=== PATIENT | female | born 1945 | race Caucasian/White ===

== ENCOUNTER 2019-06-30 12:38 | Inpatient (IN) | payer MEDICARE, BC ==
[~2019-06-30] VITALS: Ht 160 cm; Wt 70.3 kg
[2019-06-30] VITALS (20 sets, daily range): BP systolic 101–165; BP diastolic 37–92
[2019-06-30] MEDS ORDERED: OMEP20TA20 PO (12:58)
[2019-06-30] MEDS ORDERED: CHOL200074 PO (12:58)
[2019-06-30] MEDS ORDERED: FENTANYL CITRATE 100 MCG/2 ML AMPUL IV ONE ×2 (13:00→15:15)
[2019-06-30] MEDS ORDERED: ASPIRIN 325 MG TABLET PO ONE (13:00)
[2019-06-30] MEDS ORDERED: NITROGLYCERIN 0.4 MG/TAB BOTTLE SL ONE ×2 (13:00→13:03)
[2019-06-30] MEDS ORDERED: ASPIRIN 325 MG TABLET ONE (13:02)
[2019-06-30] MEDS ORDERED: FENTANYL CITRATE 100 MCG/2 ML AMPUL ONE ×2 (13:02→15:38)
[2019-06-30] MEDS ORDERED: IV NORMAL SALINE 250 ML IV ONE (13:07)
[2019-06-30] MEDS ORDERED: SWABABLE VALVE TRANSFER SET EA MC ONE (13:07)
[2019-06-30] MEDS ORDERED: IOHEXOL 350 100 ML INFUS..BTL ONE (13:07)
[2019-06-30] MEDS ORDERED: IV NORMAL SALINE 500 ML IV ONE (13:30)
[2019-06-30] MEDS ORDERED: KETAMINE HCL 500 MG/10 ML INJ ONE (13:30)
[2019-06-30] MEDS ORDERED: KETAMINE HCL 500 MG/10 ML INJ IV ONE (13:30)
[2019-06-30] MEDS ORDERED: ONDANSETRON 4 MG/2 ML VIAL ONE (14:06)
[2019-06-30] MEDS ORDERED: MORPHINE SULFATE 2 MG/1 ML DISP.SYRIN ONE ×2 (14:06→14:35)
[2019-06-30] MEDS ORDERED: ONDANSETRON 4 MG/2 ML VIAL IV ONE (14:15)
[2019-06-30] MEDS ORDERED: MORPHINE SULFATE 2 MG/1 ML DISP.SYRIN IV ONE ×2 (14:15→16:30)
[2019-06-30 14:17] LABS: BASOPHILS # (AUTO) 0.1 K/uL (0.0-8.0); BASOPHILS % (AUTO) 1.2 % (0.0-2.0); EOSINOPHILS # (AUTO) 0.1 K/uL (0.0-0.7); EOSINOPHILS % (AUTO) 2.4 % (0.0-7.0); HEMATOCRIT 38.9 % (31.2-41.9); HEMOGLOBIN 12.7 g/dL (10.9-14.3); LYMPHOCYTES # (AUTO) 1.4 K/uL (20.0-40.0); LYMPHOCYTES % (AUTO) 29.6 % (20.5-51.5); MEAN CORPUSCULAR HEMOGLOBIN 30.3 uug (24.7-32.8); MEAN CORPUSCULAR HGB CONC 33 g/dL (32.3-35.6); MONOCYTES # (AUTO) 0.4 K/uL (2.0-10.0); MONOCYTES % (AUTO) 8.3 % (0.0-11.0); NEUTROPHILS # (AUTO) 2.9 K/uL (1.8-8.9); NEUTROPHILS % (AUTO) 58.5 % (38.5-71.5); PLATELET COUNT (AUTO) 172 K/uL (179-408); RED BLOOD CELL COUNT(AUTO) 4.18 MIL/uL (3.63-4.92); WHITE BLOOD COUNT (AUTO) 4.9 K/uL (3.8-11.8)
[2019-06-30 14:18] LABS: CREATININE 0.6 mg/dL (0.6-1.3); POTASSIUM 3.4 mmol/L (3.5-5.1)
[2019-06-30 14:31] LABS: BILIRUBIN,DIRECT 0.1 mg/dL (0.0-0.2); BILIRUBIN,TOTAL 0.3 mg/dL (0.2-1.0); TOTAL PROTEIN, SERUM 6.6 g/dL (6.4-8.2)
[2019-06-30] MEDS ORDERED: NITROGLYCERIN IV 250 ML ONE (15:27)
[2019-06-30] MEDS ORDERED: FAMOTIDINE. 20 MG/2 ML VIAL IV ONE ×2 (15:30→15:34)
[2019-06-30] MEDS ORDERED: NITROGLYCERIN IV 250 ML IV PRN ×2 (15:30→18:30)
[2019-06-30] MEDS ORDERED: MAGNESIUM HYDROXIDE 30 ML LIQUID UDC PO PRN (15:45)
[2019-06-30] MEDS ORDERED: ACETAMINOPHEN 325 MG TABLET PO PRN (15:45)
[2019-06-30] MEDS ORDERED: HYDROCODONE/APAP 5-325MG TABLET PO PRN (15:45)
[2019-06-30] MEDS ORDERED: NITROGLYCERIN 0.4 MG/TAB BOTTLE SL PRN (15:45)
[2019-06-30] MEDS: FAMOTIDINE. 20 MG/2 ML VIAL IV ONE ×2 (16:32→17:15)
[2019-06-30] MEDS ORDERED: HEPARIN/D5W DRIP 500 ML IV PRN ×2 (16:45→17:45)
[2019-06-30] MEDS ORDERED: HEPARIN SODIUM,PORCINE 5,000 UNITS/ML VIAL IV ONE (16:45)
[2019-06-30] MEDS ORDERED: ENOXAPARIN SODIUM 80 MG/0.8 ML DISP.SYRIN SQ ONE (16:52)
[2019-06-30] MEDS ORDERED: HEPARIN SODIUM,PORCINE 5,000 UNITS/ML VIAL SQ PRN (18:00)
[2019-06-30] MEDS: MORPHINE SULFATE 2 MG/1 ML DISP.SYRIN IV PRN ×2 (18:11→21:34)
[2019-06-30] MEDS: ONDANSETRON 4 MG/2 ML VIAL IV PRN (18:11)
[2019-06-30] MEDS: IV NS 1000 ML 1,000 ML IV PRN (18:17)
[2019-06-30] MEDS ORDERED: HEPARIN SODIUM,PORCINE 5,000 UNITS/ML VIAL IV PRN (18:46)
[2019-07-01] VITALS (29 sets, daily range): BP systolic 92–147; BP diastolic 43–85
[2019-07-01] MEDS: ONDANSETRON 4 MG/2 ML VIAL IV PRN (00:42)
[2019-07-01] MEDS: IV NS 1000 ML 1,000 ML IV PRN (06:10)
[2019-07-01 06:26] LABS: BASOPHILS # (AUTO) 0.1 K/uL (0.0-8.0); BASOPHILS % (AUTO) 0.7 % (0.0-2.0); EOSINOPHILS # (AUTO) 0.1 K/uL (0.0-0.7); EOSINOPHILS % (AUTO) 0.7 % (0.0-7.0); HEMATOCRIT 34.8 % (31.2-41.9); HEMOGLOBIN 11.4 g/dL (10.9-14.3); LYMPHOCYTES # (AUTO) 1.4 K/uL (20.0-40.0); LYMPHOCYTES % (AUTO) 19.3 % (20.5-51.5); MEAN CORPUSCULAR HEMOGLOBIN 30.7 uug (24.7-32.8); MEAN CORPUSCULAR HGB CONC 33 g/dL (32.3-35.6); MEAN CORPUSCULAR VOLUME 93.7 fL (75.5-95.3); MONOCYTES # (AUTO) 0.6 K/uL (2.0-10.0); MONOCYTES % (AUTO) 8.4 % (0.0-11.0); NEUTROPHILS # (AUTO) 5.2 K/uL (1.8-8.9); NEUTROPHILS % (AUTO) 70.9 % (38.5-71.5); PLATELET COUNT (AUTO) 211 K/uL (179-408); RED BLOOD CELL COUNT(AUTO) 3.72 MIL/uL (3.63-4.92); WHITE BLOOD COUNT (AUTO) 7.3 K/uL (3.8-11.8)
[2019-07-01 06:55] LABS: CARBON DIOXIDE 28 mmol/L (21-32); CHLORIDE 108 mmol/L (98-107); CHOLESTEROL 189 mg/dL (<200); CREATININE 0.6 mg/dL (0.6-1.3); GLUCOSE 100 mg/dL (74-106); HDL CHOLESTEROL 69 mg/dL (40-60); MAGNESIUM 1.8 mg/dL (1.8-2.4); PHOSPHOROUS 2.6 mg/dL (2.5-4.9); POTASSIUM 3.6 mmol/L (3.5-5.1); TRIGLYCERIDES 54 MG/DL (30-150); UREA NITROGEN, BLOOD 10 mg/dL (7-18)
[2019-07-01 06:57] LABS: THYROID STIMULATING HORMONE 0.497 mIU/mL (0.358-3.740)
[2019-07-01] MEDS ORDERED: PANTOPRAZOLE SODIUM 40 MG TABLET.DR PO SCH (07:00)
[2019-07-01] MEDS ORDERED: NITROGLYCERIN IV 250 ML IV PRN (10:15)
== END 2019-07-01 19:45 | disposition home or self-care (01) | DRG 392 ==
LOC: ER 12:38 → CCU 16:51
DX: K44.9 Diaphragmatic hernia without obstruction or gangrene (principal); K50.90 Crohn's disease, unspecified, without complications; J98.11 Atelectasis; K21.9 Gastro-esophageal reflux disease without esophagitis; R07.89 Other chest pain; Z86.718 Personal history of other venous thrombosis and embolism; Z90.710 Acquired absence of both cervix and uterus; Z90.49 Acquired absence of other specified parts of digestive tract; E87.6 Hypokalemia; I11.9 Hypertensive heart disease without heart failure
CPT/HCPCS: 36415; 70030-TC; 71045; 71275; 83690; 83735; 84100; 84443; 85025; 85730; 86850; 86900; 86901; 93005; 93307; A4663; G0378; J1644; J2270; J2405; J3010; J3490; J7030; J7050; Q9967